=== PATIENT | female | born 1990 | race Caucasian/White ===

== ENCOUNTER 2017-02-25 07:34 | Outpatient (CLI) | payer BC ==
[~2017-02-25] VITALS: Ht 160 cm; Wt 71.7 kg
[2017-02-25 07:49] VITALS: BP 107/71
[2017-02-25 09:36] VITALS: BP 117/67
[2017-02-25 10:26] VITALS: BP 108/70
[2017-02-25 11:20] VITALS: BP 103/68
== END 2017-02-25 12:05 | disposition home or self-care (01) ==
LOC: LDRP-OP 07:34 → 2WEST 07:35 → LDRP-OP 04-18 14:11
PROC: 10S0XZZ Reposition Products of Conception, External Approach (ICD-10-PCS; principal; 2017-02-25)
DX: O32.9XX0 Maternal care for malpresentation of fetus, unspecified, not applicable or unspecified (principal)
CPT/HCPCS: 59025; G0378; J3105

== ENCOUNTER 2017-03-05 08:56 | Inpatient (IN) | payer BC ==
[2017-03-05] VITALS (26 sets, daily range): BP systolic 96–136; BP diastolic 53–77
[~2017-03-05] VITALS: Ht 160 cm; Wt 73.4 kg
[2017-03-05 11:54] LABS: EOSINOPHIL (%) 0.2 % (0-5); HEMATOCRIT 37.1 % (36.0-46.0); IMMATURE GRANULOCYTE (%) 0.8 % (0.0-0.7); IMMATURE GRANULOCYTE COUNT 0.1 K/uL; INSTRUMENT ABS NEUTROPHIL CT 9.6 K/uL; LYMPHOCYTE COUNT 2.4 K/uL (1.0-2.8); MCH 29.6 PG (29.0-34.0); MCHC 34.2 G/DL (30.0-36.0); MCV 86.5 FL (83-99); MEAN PLAT.VOLUME 10.5 uM^3 (9.5-12.4); MONOCYTE (%) 5.2 % (3-12); MONOCYTE COUNT 0.7 K/uL (0-0.8); NEUTROPHIL (%) 75.1 % (45-76); NEUTROPHIL COUNT 9.6 K/uL (1.8-6.4); PLATELET COUNT 267 K/uL (156-360); RBC DIS.WIDTH-CV 12.4 % (11.8-14.6); RBC DIS.WIDTH-SD 39.2 % (39-53); RED BLOOD COUNT 4.29 M/uL (3.80-5.20); WHITE BLOOD COUNT 12.7 K/uL (4.1-10.2)
[2017-03-06] VITALS (10 sets, daily range): BP systolic 90–117; BP diastolic 54–69
[2017-03-06] MEDS ORDERED: MOTRIN800 MG PO (01:08)
[2017-03-07 07:10] VITALS: BP 105/65
[2017-03-07 07:25] LABS: EOSINOPHIL (%) 0.6 % (0-5); EOSINOPHIL COUNT 0.1 K/uL (0-0.3); HEMATOCRIT 32.9 % (36.0-46.0); IMMATURE GRANULOCYTE (%) 0.7 % (0.0-0.7); IMMATURE GRANULOCYTE COUNT 0.1 K/uL; INSTRUMENT ABS NEUTROPHIL CT 10.2 K/uL; LYMPHOCYTE COUNT 3.3 K/uL (1.0-2.8); MCH 29.6 PG (29.0-34.0); MCHC 33.7 G/DL (30.0-36.0); MCV 87.7 FL (83-99); MEAN PLAT.VOLUME 10.5 uM^3 (9.5-12.4); MONOCYTE (%) 6.5 % (3-12); NEUTROPHIL (%) 69.4 % (45-76); NEUTROPHIL COUNT 10.2 K/uL (1.8-6.4); PLATELET COUNT 239 K/uL (156-360); RBC DIS.WIDTH-CV 12.5 % (11.8-14.6); RBC DIS.WIDTH-SD 40.2 % (39-53); RED BLOOD COUNT 3.75 M/uL (3.80-5.20); WHITE BLOOD COUNT 14.7 K/uL (4.1-10.2)
[2017-03-07 15:12] VITALS: BP 110/67
[2017-03-07 23:22] VITALS: BP 107/69
[2017-03-08 07:53] VITALS: BP 102/67
[2017-03-08 15:04] VITALS: BP 108/68
== END 2017-03-08 18:15 | disposition home or self-care (01) | DRG 775 ==
LOC: LDRP-OP 08:56 → 2WEST 08:57 → LDRP-OP 04-15 14:13
PROVIDERS: Midwife
PROC: 3E0S3CZ (ICD-10-PCS; principal; 2017-03-05)
PROC: 00HU33Z Insertion of Infusion Device into Spinal Canal, Percutaneous Approach (ICD-10-PCS; principal; 2017-03-05)
PROC: 3E0P7GC Introduction of Other Therapeutic Substance into Female Reproductive, Via Natural or Artificial Opening (ICD-10-PCS; principal; 2017-03-05)
PROC: 0HQ9XZZ Repair Perineum Skin, External Approach (ICD-10-PCS; 2017-03-06)
PROC: 10E0XZZ Delivery of Products of Conception, External Approach (ICD-10-PCS; 2017-03-06)
DX: O42.02 Full-term premature rupture of membranes, onset of labor within 24 hours of rupture (principal); O69.81X0 Labor and delivery complicated by cord around neck, without compression, not applicable or unspecified; Z3A.38 38 weeks gestation of pregnancy; Z37.0 Single live birth; O70.0 First degree perineal laceration during delivery
CPT/HCPCS: 85025; C1755; G0378; J0595; J1050; J3010; J7120